=== PATIENT | male | born 1985 ===

== ENCOUNTER 2023-05-22 12:23 | Day surgery (SDC) | payer OTHER ==
[~2023-05-22] VITALS: Ht 177.8 cm; Wt 101.0 kg
[2023-05-22] MEDS ORDERED: ULTRAM 50MG TAB50 MG PO ×2 (12:53→12:54)
[2023-05-22] MEDS ORDERED: BENTYL 20MG20 MG/TAB PO (12:54)
[2023-05-22] MEDS ORDERED: PRILOTC (12:55)
[2023-05-22] MEDS ORDERED: TYLENOL 500MG500 MG PO (12:55)
[2023-05-22] MEDS ORDERED: ZOFRAN 4MG T4 MG/TAB PO (12:56)
[2023-05-22] MEDS ORDERED: CARAFATE 1GM1 G PO (12:56)
[2023-05-22 14:02] VITALS: BP 117/86; PULSE 85; TEMP 97.9
--- NOTE | 2023-05-22 14:08 | NUR ---
1238 PT AMBULATORY TO BAY 2 WITH STEADY GAIT, BREATHING EVEN AND UNLABORED. PT IS ALERT AND ORIENTED, ACCOMPANIED TODAY BY HIS GIRL FRIEND. CONSENTS REVIEWED AND SIGNED BY PT. IV ESTABLISHED. LR INFUSING VIA GRAVITY AT [facility]. CALL LIGHT IN REACH. WARM BLANKET REFUSED.
[2023-05-22 14:20] VITALS: BP 121/80; PULSE 74; TEMP 97.9
--- NOTE | 2023-05-22 14:20 | NUR ---
1420 PATIENT RETURNS TO ROOM 2 VIA CART. PATIENT IS ALERT AND ORIENTED. PATIENT AMBULATES TO RECLINER WITH THE ASSISTANCE OF 2 NURSES. RESPIRATIONS EVEN AND UNLABORED, ON ROOM AIR. VITAL SIGNS OBTAINED. PATIENT SIGNIFICANT OTHER PRESENT IN ROOM. PATIENT REQUESTED A WATER. TOLERATED WELL. 1430 DOCTOR IN ROOM TO SPEAK WITH PATIENT. 1432 THIS NURSE DISCONTINUED IV FROM RIGHT HAND WITH NO COMPLICATIONS. IV CATHETER INTACT. 1445 PATIENT DISCHARGED FROM UNIT VIA WHEELCHAIR IN STABLE CONDITION.
[2023-05-22 14:35] VITALS: BP 117/86; PULSE 76
== END 2023-05-22 14:45 | disposition home or self-care (01) ==
LOC: SDCO 12:23
DX: K21.00 Gastro-esophageal reflux disease with esophagitis, without bleeding (principal); K62.1 Rectal polyp; K64.1 Second degree hemorrhoids; K22.81 Esophageal polyp; G47.33 Obstructive sleep apnea (adult) (pediatric); R19.7 Diarrhea, unspecified; R19.4 Change in bowel habit; F17.210 Nicotine dependence, cigarettes, uncomplicated
CPT/HCPCS: J2704; J7120